=== PATIENT | male | born 1955 ===

== ENCOUNTER 2018-09-12 05:55 | Day surgery (SDC) | payer OTHER ==
[~2018-09-12] VITALS: Ht 182.9 cm; Wt 111.1 kg
[2018-09-12] VITALS (10 sets, daily range): BP systolic 110–141; BP diastolic 60–80
[2018-09-12] MEDS ORDERED: oxyCONTIN 20mg tab ORAL ONE (06:00)
[2018-09-12] MEDS ORDERED: celeBREX 200mg Cap **SURGERY PATIENTS ONLY ORAL ONE (06:00)
[2018-09-12] MEDS ORDERED: ceFAZolin 1gm IVPB IVPB ONE ×2 (06:00)
--- NOTE | 2018-09-12 07:06 | Operative Note - PDOC ---
Operative Note Operative Note Pre-op Diagnosis: left knee meniscus tear Procedure: see op report Post-op Diagnosis: same as pre-op plus Operative Findings: consistent w/pre-op dx studies Anesthesia: MAC Specimen: none Complications: none Condition: stable Estimated Blood Loss: none Implant(s) used?: No Ryan Robert MD Sep 12, 2018 07:06
--- NOTE | 2018-09-12 07:06 | Pre-Procedure Note/Attestation ---
Pre-Procedure Note/Attestation Complete Prior to Procedure Planned Procedure: left Procedure Narrative: knee arthroscopy, medial menisectomy Indications for Procedure Pre-Operative Diagnosis: left knee meniscus tear Attestation I attest that I discussed the nature of the procedure; its benefits; risks and complications; and alternatives (and the risks and benefits of such alternatives ), prior to the procedure, with the patient (or the patient's legal front office representative). I attest that, if there was a reasonable possibility of needing a blood transfusion, the patient (or the patient's legal front office representative) was given the [facility] standardized written summary, pursuant to the [place] Blood Safety Act ([place] Health and Safety Code # 1645, as amended). I attest that I re-evaluated the patient just prior to the surgery and that there has been no change in the patient's H&P, except as documented below: Ryan Robert MD Sep 12, 2018 07:06
[2018-09-12] MEDS ORDERED: LISINOPRIL10 MG ORAL (07:15)
[2018-09-12] MEDS ORDERED: HYDROmorphone 1mg/ml Carpuject SUBQ PRN (07:15)
[2018-09-12] MEDS ORDERED: Tylenol #3 tab (300mg/30mg) ORAL PRN (07:15)
[2018-09-12] MEDS ORDERED: Norco 5mg/325mg tab ORAL PRN (07:15)
[2018-09-12] MEDS ORDERED: D5 1/2NS 1,000 ML IV SCH (07:15)
[2018-09-12] MEDS ORDERED: ASPIR 8181 MG ORAL (07:19)
[2018-09-12] MEDS ORDERED: GLYBURIDE-METFORMIN PO (07:19)
[2018-09-12] MEDS ORDERED: ACTOS45 MG ORAL (07:19)
[2018-09-12] MEDS ORDERED: IBUPROFEN800 M1 PO (07:19)
[2018-09-12] MEDS ORDERED: TAMSULOSIN HCL0.4 MG ORAL (07:19)
[2018-09-12] MEDS ORDERED: SIMVASTATIN40 MG ORAL (07:19)
[2018-09-12] MEDS ORDERED: Ketorolac 30mg Inj ONE (08:52)
[2018-09-12] MEDS ORDERED: Kenalog-40 1ml Vial ONE (08:52)
[2018-09-12] MEDS ORDERED: Morphine Sulfate PF 10 ML ONE (08:52)
[2018-09-12] MEDS ORDERED: EPINEPHrine 1mg/1ml Amp ONE (08:52)
[2018-09-12] MEDS ORDERED: Bupivacaine w/Epi 0.5% 30ml Vial INJ ONE (08:52)
[2018-09-12] MEDS ORDERED: LR 1000ml ONE (09:00)
[2018-09-12] MEDS ORDERED: NS Irrig 1000ml ONE (09:00)
[2018-09-12] MEDS ORDERED: fentaNYL 100 mcg/2 mL IV ONE (09:10)
[2018-09-12] MEDS ORDERED: Lidocaine 1% 10mg/ml/Epi 0.005mg/ml 30ml vial INJ ONE (09:15)
[2018-09-12] MEDS ORDERED: Metoclopramide 10mg/2ml Inj ONE (09:27)
[2018-09-12] MEDS ORDERED: Lidocaine 1% MPF 10mg/ml 5ml ONE (09:27)
[2018-09-12] MEDS ORDERED: Propofol 200mg/20ml IV ONE (09:27)
[2018-09-12] MEDS ORDERED: fentaNYL 100 mcg/2 mL IV PRN (10:45)
--- NOTE | 2018-09-12 10:45 | Immediate Post-Op Evaluation ---
Immediate Post-Op Evalulation Immediate Post-Op Evalulation Procedure: left knee scope Date of Evaluation: Sep 12, 2018 Time of Evaluation: 10:00 IV Fluids: 500 Blood Pressure Systolic: 117 Blood Pressure Diastolic: 70 Pulse Rate: 58 Respiratory Rate: 14 O2 Sat by Pulse Oximetry: 98 Temperature (Fahrenheit): 97.9 Nausea: No Vomiting: No Complications none Patient Status: awake, reacts, patent Hydration Status: adequate Drug: ancef Given Within 1 Hr of Incision: Yes Time Given: 09:05 Hollie Hernandez CRNA Sep 12, 2018 10:45
--- NOTE | 2018-09-12 10:47 | Anethesia Preoperative Eval ---
Anesthesia Pre-op PMH/ROS General Date of Evaluation: Sep 12, 2018 Time of Evaluation: 09:00 Anesthesiologist: gregorio ASA Score: ASA 2 Mallampati Score Class I : Soft palate, uvula, fauces, pillars visible Class II: Soft palate, uvula, fauces visible Class III: Soft palate, base of uvula visible Class IV: Only hard plate visible Mallampati Classification: Class II Surgeon: adnres Diagnosis: knee pain Surgical Procedure: left knee arthroscopy Anesthesia History: none Family History: no anesthesia problems Allergies: Coded Allergies: No Known Allergies (Unverified , 09/12/18) Medications: see eMAR Patient NPO?: Yes NPO Date: Sep 11, 2018 NPO Time: 23:59 Past Medical History Cardiovascular: Reports: HTN Pulmonary: Denies: asthma, COPD, JOSEFINA, other Gastrointestinal/Genitourinary: Reports: GERD; Denies: CRI, ESRD, other Neurologic/Psychiatric: Denies: dementia, CVA, depression/anxiety, TIA, other Endocrine: Reports: DM; Denies: hypothyroidism, steroids, other Hematology/Immune: Denies: anemia, DVT, bleeding disorder, other Musculoskeletal/Integumentary: Denies: OA, RA, DJD, DDD, edema, other Other: obesity PSxH Narrative: None Anesthesia Pre-op Phys. Exam Physician Exam Last Vital Signs Date Time Temp Pulse Resp B/P (MAP) Pulse Ox O2 Delivery O2 Flow Rate FiO2 09/12/18 10:17 61 17 123/74 100 Simple Mask 6.0 09/12/18 09:57 97.9 Constitutional: NAD Neurologic: CN 2-12 intact Cardiovascular: RRR Respiratory: CTA Gastrointestinal: S/NT/ND Airway Exam Mallampati Classification 2 Mallampati Score: Class II MO: full Neck: thick TMD: 2fb ROM: full Dentures: upper; no lower Anesthesia Pre-op A/P Studies Pre-op Studies: EKG - sr Risk Assessment & Plan Plan: general LMA Status Change Before Surgery: No Pre-Antibiotics Drug: ancef Given Within 1 Hr of Incision: Yes Time Given: 09:05 Hollie Hernandez CRNA Sep 12, 2018 10:47
--- NOTE | 2018-09-12 11:42 | 48 Hour Post Anesthesia Eval ---
Post Anesthesia Evaluation Procedure: left knee scope Date of Evaluation: Sep 12, 2018 Time of Evaluation: 11:42 Blood Pressure Systolic: 118 0: 71 Pulse Rate: 50 Respiratory Rate: 14 O2 Sat by Pulse Oximetry: 98 Airway: patent Nausea: No Vomiting: No Hydration Status: adequate Cardiopulmonary Status: stable Mental Status/LOC: patient returned to baseline Post-Anesthesia Complications: none Follow-up care needed: N/A Hollie Hernandez CRNA Sep 12, 2018 11:42
--- NOTE | 2018-09-12 15:15 | Operative Note - Dictated ---
DATE OF OPERATION: 09/12/2018 PREOPERATIVE DIAGNOSES: 1. Left knee medial meniscus tear. 2. Left knee grade 2 patellofemoral compartment chondral damage. 3. Grade 3 medial compartment chondral damage. 4. Hypertrophic synovial tissue medial and lateral patellofemoral compartment. PROCEDURE: 1. Left knee arthroscopy and partial medial meniscectomy. 2. Synovectomy medial and lateral patellofemoral compartment. 3. Gentle chondroplasty, trochlear groove, and medial compartment. SURGEON: Ryan Robert M.D. ANESTHESIA: MAC. INDICATION FOR PROCEDURE: The patient is a pleasant gentleman, who has had progressive left knee pain. He had evidence of meniscal tear along with some chondral damage, elected to undergo left knee arthroscopic medial meniscectomy, synovectomy, chondroplasty. Risks, limitations, expectations, and complications of the procedure were discussed in detail. All questions addressed. DESCRIPTION OF PROCEDURE: After informed consent was obtained, the patient was brought to the operating room. The patient was placed under anesthesia. The left leg was prepped and draped in sterile manner. Time-out was performed. Ancef was administered. Inferolateral stab incision was then made. Trocar was introduced into the knee joint. There was hypertrophic synovial tissue in fat pad in the patellofemoral compartment making visualization of patellofemoral compartment difficult. There was a band consistent with a medial plica. Medial gutter was then entered and it was free from loose bodies. Medial compartment was entered. Medial working portal was established. There is hypertrophic fat pad synovial tissue making visualization somewhat difficult. Therefore, a synovectomy incision fat pad was performed along the medial compartment, intercondylar notch, and lateral compartment. Once that was done, medial compartment was entered. There was some grade 3 chondral damage of medial femoral condyle. There was a tear of the posterior horn of medial meniscus. Partial medial meniscectomy was performed. The ACL was probed and noted to be intact. Lateral compartment was entered and was free of meniscal chondral damage. At this point, the camera was positioned in patellofemoral compartment and the excision of the fat pad and the synovectomy was completed. Gentle chondroplasty of trochlear groove was performed. Instruments removed. Portal sites were closed with 3-0 Monocryl sutures. The patient was awoken and taken to recovery room with stable vital signs. ESTIMATED BLOOD LOSS: None. COMPLICATIONS: None. SPECIMENS: None. Ryan Robert M.D. DR: Josep JOB#: [id number] CC: ELDON
== END 2018-09-12 13:45 | disposition home or self-care (01) ==
LOC: SDS 05:55
DX: M23.222 Derangement of posterior horn of medial meniscus due to old tear or injury, left knee (principal); M94.9 Disorder of cartilage, unspecified; M67.262 Synovial hypertrophy, not elsewhere classified, left lower leg; E11.9 Type 2 diabetes mellitus without complications; I10 Essential (primary) hypertension; E66.3 Overweight; F17.210 Nicotine dependence, cigarettes, uncomplicated; K21.9 Gastro-esophageal reflux disease without esophagitis; Z79.82 Long term (current) use of aspirin
CPT/HCPCS: 29881; 82962; J0171; J0690; J1885; J2274; J2405; J2704; J2765; J3010; J3301; 94003; 94150